=== PATIENT | female | born 1975 | race Caucasian/White ===

== ENCOUNTER 2017-12-17 17:38 | Emergency (ER) | payer SELFPAY ==
[2017-12-17] MEDS ORDERED: LORAZEPAM 2 MG/ML VIAL IV ONE (18:02)
--- NOTE | 2017-12-17 18:09 | Emergency Department Record ---
History of Present Illness - General Chief Complaint: Confusion Stated Complaint: CONFUSED Time Seen by Provider: 12/17/17 17:42 Source: Family Mode of Arrival: Wheelchair Limitations: Altered mental status - History of Present Illness Initial Comments: 42 yo female presents to ED for evaluation of increased agitation today. 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 SO cares for the patient at home with in home assistance. SO denies fevers, chills, cough, or recent illness. SO also denies any recent medication changes. SO does report recent hospitalization at [facility] 2 weeks ago for similar symptoms, Hgb was found to be low, transfused blood at that time. MD Complaint: Altered mental status Onset/Timin -: Days(s) Severity: Moderate Consistency: Constant Associated Symptoms: Denies other symptoms - Js Coma Scale Eye Response: (4) Open spontaneously Motor Response: (6) Obeys commands Verbal Response: (5) Oriented (at baseline, answers questions asked by family members) [place] Total: 15 - Related Data Home Medications Medication Instructions Recorded Confirmed Last Taken Escitalopram Oxalate [Lexapro] 20 mg PO DAILY 12/17/17 12/17/17 12/16/17 Naproxen [Naprosyn] 500 mg PO BID 12/17/17 12/17/17 Unknown Quetiapine Fumarate [Seroquel] 25 mg PO BID 12/17/17 12/17/17 12/17/17 Trazodone HCl 50 mg PO QHS 12/17/17 12/17/17 12/16/17 Warfarin Sodium [Jantoven] 5 mg PO DAILY 12/17/17 12/17/17 12/16/17 Previous Rx's Medication Instructions Recorded Lorazepam [Ativan] 0.5 mg PO Q8H PRN #10 tablet 12/17/17 Allergies Allergy/AdvReac Type Severity Reaction Status Date / Time meperidine [From Demerol] Allergy HYPERSENSIT Verified 12/17/17 19:04 IVITY Review of Systems ROS unobtainable: Due to mental status Constitutional: Reports: Other (Increased agitation) Physical Exam - General General Appearance: Alert, Moderate distress, Other (Patient is agitated on examination, kicking her legs, but calms with reassurance at the bedside from family. ) Limitations: Physical limitation - Head Head exam: Atraumatic, Normocephalic, Normal inspection Head exam detail: negative: Abrasion, Contusion, Connolly's sign, General tenderness, Hematoma, Laceration - Eye Eye exam: Other (Right eye squeezed closed due to previous CVA). negative: Conjunctival injection, Periorbital swelling, Periorbital tenderness, Scleral icterus - ENT Ear exam: negative: Auricular hematoma, Auricular trauma Nasal Exam: negative: Active bleeding, Discharge Mouth exam: negative: Drooling, Laceration, Tongue elevation - Neck Neck exam: Normal inspection. negative: Meningismus, Tenderness - Respiratory Respiratory exam: Normal lung sounds bilaterally. negative: Respiratory distress, Rhonchi, Stridor, Wheezes - Cardiovascular Cardiovascular Exam: Regular rate, Normal rhythm, Normal heart sounds Peripheral Pulses: 3+: Dorsalis Pedis (R), Dorsalis Pedis (L) - GI/Abdominal GI/Abdominal exam: Soft, Other (Debris around patient's peg tube with mild site skin irritation.). negative: Rebound, Rigid, Tenderness - Rectal Rectal exam: Deferred - exam: Deferred - Extremities Extremities exam: Other (Contractures of the UEs bilaterally, kicking her lower extremities fully on examination). negative: Calf tenderness, Pedal edema, Tenderness - Back Back exam: Denies: CVA tenderness (R), CVA tenderness (L) - Neurological Neurological exam: Alert. negative: Motor sensory deficit - Psychiatric Psychiatric exam: Agitated - Skin Skin exam: Other (Mild areas of ecchymosis to the UEs bilaterally, per family from "hitting herself".) Course - Reevaluation(s) Reevaluation #1: 12/17/17 18:39 Patient was reassessed, more clam following ativan administration. Laboratory/UA/CT imaging are pending. Reevaluation #2: 12/17/17 18:55 Laboratory studies were reviewed and are grossly unremarkable for an acute process. UA/Head CT pending. Reevaluation #3: 12/17/17 19:27 UA negative for infection. CT Brain: Negative for acute process Severe encephalomalacia cerebellum Post-surgical changes WILL CALL ORDER CLERK shunt Reevaluation #4: 12/17/17 19:42 Patient's family were updated on all results, report that they would prefer to take the patient home at this time following discussion of observation stay vs. home with ativan as needed and close follow-up. Family reports that the patient has not appeared this well "in months". Will discharge home at this time. Medical Decision Making - Lab Data Result diagrams: 12/17/17 18:10 12/17/17 18:10 Disposition Disposition: Discharge Clinical Impression: Agitation, Cerebellar infarction Disposition: Home, Self-Care Condition: (2) Stable Additional Instructions: Return to ED if your symptoms worsen or if you have any concerns. Ativan as directed. Follow-up with your psychiatrist as scheduled (). Follow-up with your family doctor in 1-3 days as directed. Prescriptions: Lorazepam [Ativan] 0.5 mg PO Q8H PRN #10 tablet PRN Reason: Agitation Forms: Patient Portal Access Time of Disposition: 19:46 Quality - Quality Measures Quality Measures: N/A - Blood Pressure Screening Does Patient Have Any of the Following: No Blood Pressure Classification: Hypertensive Reading Systolic Measurement: 118 Diastolic Measurement: 94 Screening for High Blood Pressure: < First Hypertensive BP, F/U Documented > [ [id number]] First Hypertensive Follow-up Interventions: Referral to alternative/primary care provider.
[2017-12-17] MEDS ORDERED: 0.9 % SODIUM CHLORIDE 1000ML 500 ML IV SCH (18:15)
[2017-12-17 18:21] LABS: BASO % 0.3 % (0-6); EOS % 0.8 % (0-6); GRAN % 75.6 % (47-80); HEMATOCRIT 39.4 % (35.0-47.0); HEMOGLOBIN 11.6 gm/dl (11.6-16.0); LYMPH % 15.2 % (16-45); MEAN CELL VOLUME 84.5 fl (81-97); MEAN CORPUSCULAR HEMOGLOBIN 24.9 pg (27-33); MEAN CORPUSCULAR HGB CONC 29.4 g/dl (32-36); MEAN PLATELET VOLUME 10.1 fl (7.4-10.4); MONO % 8.1 % (0-9); PLATELET COUNT 272 K/uL (130-400); RED BLOOD COUNT 4.66 M/uL (3.80-5.40); RED CELL DISTRIBUTION WIDTH 17.7 % (11.5-14.5); WHITE BLOOD COUNT W/O DIFF 7.2 K/uL (4.2-12.2)
[2017-12-17 18:38] LABS: BLOOD UREA NITROGEN 13 mg/dL (6-20); CREATININE 0.7 mg/dL (0.5-0.9); EST GLOMERULAR FILTRATION RATE > 60 mL/min
[2017-12-17 18:39] LABS: TOTAL PROTEIN 7.7 g/dL (6.6-8.7)
[2017-12-17 18:41] LABS: GLUCOSE,RANDOM 116 mg/dL (74-109)
[2017-12-17 18:44] LABS: ALB/GLOB RATIO 1.6 (1.1-1.8); ALBUMIN 4.7 g/dL (4.0-5.0); ALKALINE PHOSPHATASE 79 U/L (35-104); ALT/SGPT 17 U/L (<33); AST/SGOT 19 U/L (10.0-35.0)
[2017-12-17 19:14] LABS: URINE APPEARANCE CLEAR; URINE BILIRUBIN NEGATIVE (NEGATIVE); URINE BLOOD NEGATIVE (NEGATIVE); URINE COLOR YELLOW; URINE GLUCOSE (UA) NEGATIVE (NEGATIVE); URINE KETONE NEGATIVE (NEGATIVE); URINE LEUKOCYTE ESTERASE TRACE (NEGATIVE); URINE NITRITE NEGATIVE (NEGATIVE); URINE PROTEIN NEGATIVE (NEGATIVE); URINE UROBILINOGEN 0.2 E.U./dL (0.20 - 1.00)
[2017-12-17 19:24] LABS: URINE BACTERIA NONE SEEN; URINE RBC 0 - 2 (NONE SEEN); URINE WBC 0 - 2 (0-2/hpf)
[2017-12-17 20:00] LABS: INR 2.8; PROTHROMBIN TIME (PATIENT) 27.4 SECONDS (9.5-12.1)
--- NOTE | 2017-12-20 20:23 | CT SCAN REPORT ---
EXAM: CT SCAN HEAD WO CONTRAST HISTORY: INCREASED AGITATION. TECHNIQUE: CT head without contrast. COMPARISON: None. HAND DOMINANCE: Right. FINDINGS: Examination is suboptimal due to non-standard patient positioning. There is a ventriculostomy catheter via a right frontal approach with the tip in the right lateral ventricle. The ventricles are normal in size. There are no priors for comparison. Sulci are preserved. The basal cisterns are maintained. There is encephalomalacia of the entire left cerebellum and encephalomalacia in the superior right cerebellum, likely from remote ischemia. There is white matter hypodensity along the ventricular catheter. No acute intracranial hemorrhage or extraaxial fluid collection is identified. No significant mass effect or midline shift. The paranasal sinuses and mastoid air cells are clear. There is craniotomy defect of the right occipital bone. IMPRESSION: 1. NEGATIVE NONCONTRAST CT FOR ACUTE INTRACRANIAL ABNORMALITY. 2. EXTENSIVE ENCEPHALOMALACIA OF THE CEREBELLUM, LIKELY FROM REMOTE ISCHEMIA OR SURGICAL CHANGES. 3. VENTRICULOPERITONEAL SHUNT CATHETER TERMINATING IN THE RIGHT LATERAL VENTRICLE. THE VENTRICLES ARE NORMAL IN SIZE, THERE ARE NO PRIOR FOR COMPARISON. JOB NUMBER: [id number] [facility]
== END 2017-12-17 19:50 | disposition home or self-care (01) ==
LOC: ER 17:38
DX: R45.1 Restlessness and agitation (principal); I69.319 Unspecified symptoms and signs involving cognitive functions following cerebral infarction; I69.392 Facial weakness following cerebral infarction; Z79.01 Long term (current) use of anticoagulants
CPT/HCPCS: 99284 ×2; 96374; 96361; 83605; 82140; 85025; 85610; 80053; 81001; 84443; 70450; J2060; J7030